=== PATIENT | male | born 1950 | race Caucasian/White ===

== ENCOUNTER 2019-04-02 15:45 | Observation (INO) ==
[2019-04-02 16:37] LABS: Basophils # (auto) 0.03 K/uL (0-0.2); Basophils % (auto) 0.4 %; Eosinophils % (auto) 1.3 %; Hematocrit (blood only) 35.3 % (42-52); Hemoglobin 12.3 g/dL (14.0-18.0); Immature Granulocytes # (auto) 0.07 K/uL (0.00-0.02); Immature Granulocytes % (auto) 0.9 %; Lymphocytes # (auto) 1.44 K/uL (1.2-3.4); Lymphocytes % (auto) 18.3 %; Mean Corpuscular Hemoglobin 32.1 pg (25-34); Mean Corpuscular Hgb Conc 34.8 g/dL (32-36); Mean Corpuscular Volume 92.2 fL (80-100); Mean Platelet Volume 9.5 fL (7.4-10.4); Monocytes # (auto) 0.66 K/uL (0.11-0.59); Monocytes % (auto) 8.4 %; Neutrophils # (auto) 5.55 K/uL (1.4-6.5); Neutrophils % (auto) 70.7 %; Platelet Count 424 K/uL (130-400); RDW Coefficient of Variation 13.4 % (11.5-14.5); Red Blood Count 3.83 M/uL (4.7-6.1); White Blood Count 7.85 K/uL (4.8-10.8)
--- NOTE | 2019-04-02 16:42 | XRay Report ---
XR chest 1V portable CLINICAL HISTORY: Chest Pain COMPARISON STUDY: Chest radiograph June 30, 2012. FINDINGS: Lung volumes are lower limits of normal. Lungs are clear. There is no pneumothorax or pleur al effusion. Cardiac size is normal. Mediastinal contours are normal. There is no evidence for pulmon tayo edema. Incidental note is made of an anterior cervical spine fusion, median sternotomy wires and mediastinal surgical clips. IMPRESSION: No acute cardiopulmonary findings. ACT 112: Negative or not required by law. Electronically signed by: Hayden Montgomery M.D. 04/02/2019 4:41 PM
[2019-04-02 16:45] LABS: Alanine Aminotransferase 16 U/L (12-78); Albumin Level 2.7 gm/dl (3.4-5.0); Aspartate Aminotransferase 14 U/L (15-37); Blood Urea Nitrogen 26 mg/dl (7-18); Calcium 8.7 mg/dl (8.5-10.1); Carbon Dioxide 22 mmol/L (21-32); Chloride 106 mmol/L (98-107); Creatinine Clr Calc Pharmacy 47.9 ml/min; Est GFR (African American) 64.7; Est GFR (Non-African American) 55.8; Glucose 147 mg/dl (70-99); Lipase 44 U/L (73-393); Magnesium 1.8 mg/dl (1.8-2.4); Potassium 4.2 mmol/L (3.5-5.1); Sodium 138 mmol/L (136-145)
[2019-04-02 16:47] LABS: Partial Thromboplastin Time 26.8 Seconds (21.0-31.0); Prothrombin Time 10.2 Seconds (9.0-12.0)
[2019-04-02 16:55] LABS: Albumin Globulin Ratio 0.6 (0.9-2); Alkaline Phosphatase 93 U/L (45-117); Bilirubin,Total 0.3 mg/dl (0.2-1); Globulin 4.2 gm/dl (2.5-4.0); NT Pro B Type Natriuretic Pept 375 pg/ml (0-900); Phosphorus 3.4 mg/dl (2.5-4.9); Total Protein 6.9 gm/dl (6.4-8.2); Troponin I < 0.015 ng/ml (0-0.045)
[2019-04-02] MEDS ORDERED: OPTIRAY 320 125ml IV PRN (17:05)
--- NOTE | 2019-04-02 17:25 | CT Scan Report ---
CT OF THE HEAD WITHOUT CONTRAST CLINICAL HISTORY: vertigo COMPARISON STUDY: No previous studies for comparison. CT DOSE: 1055.40 mGy.cm TECHNIQUE: Helical axial images of the head were obtained without IV contrast. Automated exposure con trol was utilized for the study. A dose lowering technique was utilized adhering to the principles o f ALARA. FINDINGS: No acute intracranial hemorrhage, midline shift or mass effect is present. The ventricular system is unremarkable. The basilar cisterns are patent. No extra-axial collections are present. Ther e are no findings to suggest acute dural sinus thrombosis or acute territorial infarct. No significan t calvarial abnormalities are present. Visualized portions of the sinuses and mastoid air cells are c lear. Note is made of a 9 mm hypodensity within the right centrum semiovale. IMPRESSION: 1. No acute intracranial hemorrhage or mass effect. 2. 9 mm hypodensity within the right centrum semiovale ovale.. This favors an age indeterminate, but likely old, lacunar infarct. ACT 112: Negative or not required by law. Electronically signed by: Hayden Montgomery M.D. 04/02/2019 5:24 PM
--- NOTE | 2019-04-02 17:41 | CT Scan Report ---
CT ANGIOGRAPHY OF THE NECK WITH CONTRAST CLINICAL HISTORY: vertigo COMPARISON STUDY: No previous studies for comparison. Technique: CT angiography of the carotid and vertebral arteries was obtained using PeerReach 320 IV and 3D reconstruction on an independent workstation. NASCET criteria was utilized. Automated exposure c ontrol was utilized for the study. A dose lowering technique was utilized adhering to the principles of ALARA. Findings: A 1.3 cm subpleural opacity within the right upper lobe is partially imaged on this exam. T he bilateral common carotid, cervical internal carotid and vertebral arteries are patent. There is no dissection. There is no severe stenosis. There is mild plaque within the bilateral carotid bifurcati ons. The CTA of the head will be reported separately. There is moderate plaque within the proximal le ft subclavian artery without high-grade stenosis. IMPRESSION: 1. Mild atherosclerotic plaque. No significant stenosis within the major vessels of the neck. No diss ection. 2. 1.3 cm subpleural right upper lobe opacity which favors atelectasis or scarring. Follow up chest C T in 6 months is recommended. ACT 112: Negative or not required by law. Electronically signed by: Hayden Montgomery M.D. 04/02/2019 5:39 PM
--- NOTE | 2019-04-02 17:45 | CT Scan Report ---
CTA ANGIOGRAPHY OF THE HEAD CLINICAL HISTORY: vertigo COMPARISON STUDY: No previous studies for comparison. TECHNIQUE: Helical axial images of the head were obtained following uneventful intravenous administr ation of 116 cc of Optiray 320. Automated exposure control was utilized for the study. A dose lower ing technique was utilized adhering to the principles of ALARA. FINDINGS: The bilateral M1, M2, A1 and A2 segments are patent. There is no intracranial aneurysm, thr ombus or dissection. There is no high-grade stenosis. There is persistence of the right posteri or cerebral artery. There is mild narrowing of the intracranial portion of the left vertebral artery. No acute intracranial hemorrhage, midline shift or mass effect is present. Ventricular system is nor mal. Basilar cisterns are patent. There is mild polypoid mucosal thickening of the maxillary sinuses. IMPRESSION: 1. No intracranial aneurysm, intraluminal thrombus or abrupt vessel cut off. 2. Mild atherosclerotic plaque. Mild stenosis of the intracranial portion of the left vertebral arter y. ACT 112: Negative or not required by law. Electronically signed by: Hayden Montgomery M.D. 04/02/2019 5:43 PM
--- NOTE | 2019-04-02 18:08 | History & Physical Report ---
Date of Service April 02, 2019 History of Present Illness Primary Care Provider: DEANN Ojeda Shortness of breath on exertion - pulmonolgist didn't feel. Chest pain at rest and exertion New vertigo this morning, vision today Allergies Allergy/AdvReac Type Severity Reaction Status Date / Time rosuvastatin [From Crestor] Allergy Unknown myalgia Verified 04/02/19 17:08 [id number]-Vmr-Kjj Reductase Allergy Unknown myalgia Verified 04/02/19 17:08 Inhibitor Home Medications Home Medications Medication Instructions Recorded Confirmed Type ranolazine 1,000 mg 1,000 mg PO BID #60 tab 09/30/18 04/02/19 Rx tablet,extended release,12 hr nitroglycerin 0.4 mg sublingual 0.4 mg SL .COMPLEX #30 tab 03/10/19 04/02/19 Rx tablet aspirin 81 mg PO HS 04/02/19 04/02/19 History clopidogrel 75 mg PO QAM 04/02/19 04/02/19 History ibuprofen 200 mg PO Q6H PRN 04/02/19 04/02/19 History losartan 25 mg PO QAM 04/02/19 04/02/19 History metoprolol succinate 100 mg PO QAM 04/02/19 04/02/19 History pantoprazole 40 mg PO QAM 04/02/19 04/02/19 History Past Med/Surg History Medical History Acid reflux disease (Chronic) Arthritis (Chronic) Black lung disease Cervical spondylosis (Chronic 06/30/12) Cervical stenosis of spine (Chronic) Surgery 2004 on C4-C6 [address] Dr. Rizzo. Coronary atherosclerosis of [place] coronary vessel (Chronic 06/30/12) Dyslipidemia (high LDL; low HDL) (Chronic) Dyspnea on exertion Grade II diastolic dysfunction History of [place] (myocardial infarction) 06/30/2012-completely occluded proximal RCA which was treated using a 4.0 x 15 mm bare metal stent, high-grade stenosis of the proximal PDA which was treated using a 2.25 x 12 mm bare metal stent Hypertension (Chronic) Impaired fasting glucose (Chronic) Lumbar canal stenosis (Chronic) Pleural thickening Surgical History H/O cardiac catheterization 2004. At that time he underwent deployment of a Cypher 2.5 x 23 mm stent in the second obtuse marginal artery of the left circumflex coronary artery. S/P CABG x 2 (Chronic) CABG x2 vessels with VARGAS to LAD and a saphenous vein graft to left circumflex on August 16, 2012. Family History Mother Myocardial infarction Grandmother (Maternal) Myocardial infarction Aunt Myocardial infarction Social History Preferred Language: Pashto Feels Safe at Home: Yes Smoking Status: Never smoker Seatbelt Use: always Results & Data Vital Signs (Past 12 Hours) Vital Signs Temp Pulse Resp BP Pulse Ox 04/02/19 18:00 63 14 133/74 97 04/02/19 16:30 69 20 159/91 H 97 04/02/19 15:53 70 14 170/88 H 97 04/02/19 15:52 75 18 98 04/02/19 15:45 36.7 C 75 18 170/88 H 98 PG Care Time/CCT Total # of Minutes Spent Total Time Spent with Patient: Total time spent is greater than 50% in coord ination of care (as documented) at patient's floor/unit and/or counseling patient: Coding
--- NOTE | 2019-04-02 19:33 | Emergency Department Note ---
Entered by Sandra Dang acting as a scribe for João Escoto MD History of Present Illness General Chief complaint: Dizziness Stated complaint: DIZZINESS, WEAKNESS Time Seen by Provider: 04/02/19 16:05 Source: patient History of Present Illness Onset (ago): hour(s) (just prior to arrival) Location: head Severity: similar to prior episodes Pain Consistency: + other (episode ) Maximum Pain Intensity: 7 Quality: + other (vertigo) Associated symptoms: + chest pain (intermittent), + shortness of breath (worsening ), + weakness and + other (positive distorted vision; positive seeing colorful spots; ) The patient is a 68 year old male who presents to the Emergency Room with complaints of an episode of vertigo that began just prior to arrival. The patient states that at this time his vision became distorted and he began to see colorful spots. The patient states that he feels weak during this time. He reports that this is similar to a prior episode of vertigo several months ago. The patient states that he has been having worsening shortness of breath over the past several weeks. He states that he saw a Database Tester last week and was told that his lungs are clear. The patient states that he plans to follow with a Tripper soon for further evaluation. The patient states that he has been having chest pain intermittently over the past several weeks. The patient reports a history of an HI with catheterization. Home Medications Home Medications Medication Instructions Recorded Confirmed Type ranolazine 1,000 mg 1,000 mg PO BID #60 tab 09/30/18 04/02/19 Rx tablet,extended release,12 hr nitroglycerin 0.4 mg sublingual 0.4 mg SL .COMPLEX #30 tab 03/10/19 04/02/19 Rx tablet aspirin 81 mg PO HS 04/02/19 04/02/19 History clopidogrel 75 mg PO QAM 04/02/19 04/02/19 History ibuprofen 200 mg PO Q6H PRN 04/02/19 04/02/19 History losartan 25 mg PO QAM 04/02/19 04/02/19 History metoprolol succinate 100 mg PO QAM 04/02/19 04/02/19 History pantoprazole 40 mg PO QAM 04/02/19 04/02/19 History Allergies Allergy/AdvReac Type Severity Reaction Status Date / Time rosuvastatin [From Crestor] Allergy Unknown myalgia Verified 04/02/19 17:08 [id number]-[id number] Reductase Allergy Unknown myalgia Verified 04/02/19 17:08 Inhibitor Past Med/Surg History Medical History Acid reflux disease (Chronic) Arthritis (Chronic) Black lung disease Cervical spondylosis (Chronic 06/30/12) Cervical stenosis of spine (Chronic) Surgery 2004 on C4-C6 [address]. Rizzo. Coronary atherosclerosis of [place] coronary vessel (Chronic 06/30/12) Dyslipidemia (high LDL; low HDL) (Chronic) Dyspnea on exertion Grade II diastolic dysfunction History of HI (myocardial infarction) 06/30/2012-completely occluded proximal RCA which was treated using a 4.0 x 15 mm bare metal stent, high-grade stenosis of the proximal PDA which was treated using a 2.25 x 12 mm bare metal stent Hypertension (Chronic) Impaired fasting glucose (Chronic) Lumbar canal stenosis (Chronic) Pleural thickening Surgical History H/O cardiac catheterization 2004. At that time he underwent deployment of a Cypher 2.5 x 23 mm stent in the second obtuse marginal artery of the left circumflex coronary artery. S/P CABG x 2 (Chronic) CABG x2 vessels with VARGAS to LAD and a saphenous vein graft to left circumflex on August 16, 2012. 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 and A total of 10 systems reviewed and were otherwise negative Physical Exam Vital Signs Vital Signs - 24 hr 04/02/19 15:45 04/02/19 15:52 04/02/19 15:53 Temperature 36.7 C Temperature Source Oral Pulse Rate 75 75 70 Pulse Rate from SpO2 Sensor 70 Pulse Rhythm Regular Regular Respiratory Rate 18 18 14 Respiratory Effort / Characteristics Non-Labored Respiratory Depth Normal Respiratory Pattern Regular Blood Pressure 170/88 H 170/88 H Blood Pressure Mean 115 109 Pulse Oximetry 98 98 97 Oxygen Delivery Method Room Air Room Air Room Air Sepsis Recent Fever Within 48 Hours No Sepsis New/Unexplained Change in Mental Status No Sepsis Action Taken by Nursing No Action Required 04/02/19 16:30 04/02/19 18:00 04/02/19 18:30 Temperature Temperature Source Pulse Rate 69 63 65 Pulse Rate from SpO2 Sensor 71 63 66 Pulse Rhythm Respiratory Rate 20 14 13 Respiratory Effort / Characteristics Respiratory Depth Respiratory Pattern Blood Pressure 159/91 H 133/74 159/86 H Blood Pressure Mean 110 91 105 Pulse Oximetry 97 97 98 Oxygen Delivery Method Room Air Room Air Room Air Sepsis Recent Fever Within 48 Hours Sepsis New/Unexplained Change in Mental Status Sepsis Action Taken by Nursing 04/02/19 19:00 04/02/19 19:30 04/02/19 20:01 Temperature Temperature Source Pulse Rate 64 65 72 Pulse Rate from SpO2 Sensor 64 65 71 Pulse Rhythm Respiratory Rate 17 16 18 Respiratory Effort / Characteristics Respiratory Depth Respiratory Pattern Blood Pressure 140/77 138/82 171/86 H Blood Pressure Mean 104 106 119 Pulse Oximetry 97 96 98 Oxygen Delivery Method Room Air Room Air Room Air Sepsis Recent Fever Within 48 Hours Sepsis New/Unexplained Change in Mental Status Sepsis Action Taken by Nursing 04/02/19 20:30 04/02/19 21:00 Temperature Temperature Source Pulse Rate 69 63 Pulse Rate from SpO2 Sensor 69 63 Pulse Rhythm Respiratory Rate 19 13 Respiratory Effort / Characteristics Respiratory Depth Respiratory Pattern Blood Pressure 175/97 H 123/68 Blood Pressure Mean 122 82 Pulse Oximetry 97 95 Oxygen Delivery Method Room Air Room Air Sepsis Recent Fever Within 48 Hours Sepsis New/Unexplained Change in Mental Status Sepsis Action Taken by Nursing GENERAL: Awake, alert, well-appearing, in no distress HENT: Normocephalic, atraumatic. Oropharynx with dry mucous membranes and otherwise unremarkable. EYES: Normal conjunctiva. Sclera non-icteric. EOMI. No nystamgus. PEARRL. NECK: Supple. No nuchal rigidity. FROM. No JVD. RESPIRATORY: CTAB. CARDIAC: Regular rate, normal rhythm. Extremities warm and well perfused. Pulses equal. ABDOMEN: Soft, non-distended. No tenderness to palpation. No rebound or guard ing. No masses. RECTAL: Deferred. MUSCULOSKELETAL: Chest examination reveals no tenderness. The back is symmetrical on inspection without obvious abnormality. There is no CVA tenderness to palpation. No joint edema. LOWER EXTREMITIES: Calves are equal size bilaterally and non-tender. No edema. No discoloration. NEURO: Normal sensorium. No sensory or motor deficits noted. Cerebellar function intact, including finger to nose, alternating palms, heel to skelton. 5/5 strength and SILT x4 extremities. SKIN: No rash or jaundice noted. Course Course 1638: Past medical records reviewed. The patient was evaluated in room B4B. A complete history and physical exam was performed. 180: I discussed the case with Dr. S[facility] Hospitalist who accepts the patient for further evaluation. Administered Medications Acetaminophen (Tylenol) 650 mg PO Q4H PRN PRN Reason: Pain or Fever Stop: 05/02/19 22:49 Last Admin: 04/02/19 23:08 Dose: 650 mg Documented by: [id number] Aspirin (Ecotrin Ectab) 81 mg PO HS APRIL Stop: 05/02/19 22:49 Last Admin: 04/02/19 23:19 Dose: 81 mg Documented by: [id number] Ioversol (Optiray 320 125ml) 116 ml IV ONCE PRN PRN Reason: Interaction Checking Stop: 04/06/19 17:04 Last Admin: 04/02/19 17:06 Dose: 116 ml Documented by: [id number] Ranolazine (Ranexa) 1,000 mg PO BID APRIL Stop: 05/02/19 22:49 Last Admin: 04/02/19 23:19 Dose: 1,000 mg Documented by: [id number] Medical Decision Making Differential Diagnosis Differential diagnosis includes etiologies such as benign positional vertigo, dehydration, hypovolemia, anemia, tumor, infection, hypoglycemia, electrolyte abnormalities, cardiac sources, intracerebral event, toxicologic, neurologic, as well as others were entertained. Medical Records Attestation: I reviewed the patient's medical records. Home Medications Current Medication List: was personally reviewed by me Laboratory Data Attestation: I reviewed the patient's lab results. Result diagrams: 04/02/19 16:01 04/02/19 16: Lab Results 04/02/19 04/02/19 04/02/19 Range/Units 16:01 16: 16:01 WBC 7.85 (4.8-10.8) K/uL RBC 3.83 L (4.7-6.1) M/uL Hgb 12.3 L (14.0-18.0) g/dL Hct 35.3 L (42-52) % MCV 92.2 (80-100) fL MCH 32.1 (25-34) pg MCHC 34.8 (32-36) g/dL RDW Std Deviation 45.0 (36.4-46.3) fL RDW Coeff of Cecily 13.4 (11.5-14.5) % Plt Count 424 H (130-400) K/uL MPV 9.5 (7.4-10.4) fL Immature Gran % (Auto) 0.9 % Neut % (Auto) 70.7 % Lymph % (Auto) 18.3 % [place] % (Auto) 8.4 % Eos % (Auto) 1.3 % Baso % (Auto) 0.4 % Immature Gran # (Auto) 0.07 H (0.00-0.02) K/uL Neut # (Auto) 5.55 (1.4-6.5) K/uL Lymph # (Auto) 1.44 (1.2-3.4) K/uL [place] # (Auto) 0.66 H (0.11-0.59) K/uL Eos # (Auto) 0.10 (0-0.5) K/uL Baso # (Auto) 0.03 (0-0.2) K/uL PT 10.2 (9.0-12.0) Seconds INR 1.0 (0.9-1.1) APTT 26.8 (21.0-31.0) Seconds PTT Ratio 1.0 Sodium 138 (136-145) mmol/L Potassium 4.2 (3.5-5.1) mmol/L Chloride 106 (98-107) mmol/L Carbon Dioxide 22 (21-32) mmol/L Anion Gap 10.0 (3-11) BUN 26 H (7-18) mg/dl Creatinine 1.32 (0.6-1.4) mg/dl Est Cr Clr Drug Dosing 47.9 ml/min Est GFR ( Amer) 64.7 Est GFR (Non-Af Amer) 55.8 BUN/Creatinine Ratio 20.0 (10-20) Glucose 147 H (70-99) mg/dl Calcium 8.7 (8.5-10.1) mg/dl Phosphorus 3.4 (2.5-4.9) mg/dl Magnesium 1.8 (1.8-2.4) mg/dl Total Bilirubin 0.3 (0.2-1) mg/dl AST 14 L (15-37) U/L ALT 16 (12-78) U/L Alkaline Phosphatase 93 (45-117) U/L Troponin I < 0.015 (0-0.045) ng/ml NT-Pro-B Natriuret Pep 375 (0-900) pg/ml Total Protein 6.9 (6.4-8.2) gm/dl Albumin 2.7 L (3.4-5.0) gm/dl Globulin 4.2 H (2.5-4.0) gm/dl Albumin/Globulin Ratio 0.6 L (0.9-2) Lipase 44 L (73-393) U/L TSH 2.370 (0.300-4.500) uIu/ml Urine Color Urine Appearance (Clear) Urine pH (4.5-7.5) Ur Specific O[place] (1.000-1.030) Urine Protein (Negative) Urine Glucose (UA) (Negative) Urine Ketones (Negative) Urine Blood (Negative) Urine Nitrite (Negative) Urine Bilirubin (Negative) Urine Urobilinogen (Negative) Ur Leukocyte Esterase (Negative) 04/02/19 Range/Units 20:00 WBC (4.8-10.8) K/uL RBC (4.7-6.1) M/uL Hgb (14.0-18.0) g/dL Hct (42-52) % MCV (80-100) fL MCH (25-34) pg MCHC (32-36) g/dL RDW Std Deviation (36.4-46.3) fL RDW Coeff of Cecily (11.5-14.5) % Plt Count (130-400) K/uL MPV (7.4-10.4) fL Immature Gran % (Auto) % Neut % (Auto) % Lymph % (Auto) % [place] % (Auto) % Eos % (Auto) % Baso % (Auto) % Immature Gran # (Auto) (0.00-0.02) K/uL Neut # (Auto) (1.4-6.5) K/uL Lymph # (Auto) (1.2-3.4) K/uL [place] # (Auto) (0.11-0.59) K/uL Eos # (Auto) (0-0.5) K/uL Baso # (Auto) (0-0.2) K/uL PT (9.0-12.0) Seconds INR (0.9-1.1) APTT (21.0-31.0) Seconds PTT Ratio Sodium (136-145) mmol/L Potassium (3.5-5.1) mmol/L Chloride (98-107) mmol/L Carbon Dioxide (21-32) mmol/L Anion Gap (3-11) BUN (7-18) mg/dl Creatinine (0.6-1.4) mg/dl Est Cr Clr Drug Dosing ml/min Est GFR ( Amer) Est GFR (Non-Af Amer) BUN/Creatinine Ratio (10-20) Glucose (70-99) mg/dl Calcium (8.5-10.1) mg/dl Phosphorus (2.5-4.9) mg/dl Magnesium (1.8-2.4) mg/dl Total Bilirubin (0.2-1) mg/dl AST (15-37) U/L ALT (12-78) U/L Alkaline Phosphatase (45-117) U/L Troponin I (0-0.045) ng/ml NT-Pro-B Natriuret Pep (0-900) pg/ml Total Protein (6.4-8.2) gm/dl Albumin (3.4-5.0) gm/dl Globulin (2.5-4.0) gm/dl Albumin/Globulin Ratio (0.9-2) Lipase (73-393) U/L TSH (0.300-4.500) uIu/ml Urine Color Yellow Urine Appearance Clear (Clear) Urine pH 7.0 (4.5-7.5) Ur Specific [place] > 1.045 H (1.000-1.030) Urine Protein Negative (Negative) Urine Glucose (UA) Negative (Negative) Urine Ketones Negative (Negative) Urine Blood Negative (Negative) Urine Nitrite Negative (Negative) Urine Bilirubin Negative (Negative) Urine Urobilinogen Negative (Negative) Ur Leukocyte Esterase Negative (Negative) Imaging Data Radiologist's Impression: Radiology results as stated below per my review and the radiologist's interpretation: XR chest 1V portable CLINICAL HISTORY: Chest Pain COMPARISON STUDY: Chest radiograph June 30, 2012. FINDINGS: Lung volumes are lower limits of normal. Lungs are clear. There is no pneumothorax or pleural effusion. Cardiac size is normal. Mediastinal contours are normal. There is no evidence for pulmonary edema. Incidental note is made of an anterior cervical spine fusion, median sternotomy wires and mediastinal surgical clips. IMPRESSION: No acute cardiopulmonary findings. ACT 112: Negative or not required by law. Electronically signed by: Hayden Montgomery M.D. 04/02/2019 4:[address] OF THE HEAD WITHOUT CONTRAST CLINICAL HISTORY: vertigo COMPARISON STUDY: No previous studies for comparison. CT DOSE: 1055.40 mGy.cm TECHNIQUE: Helical axial images of the head were obtained without IV contrast. Automated exposure control was utilized for the study. A dose lowering technique was utilized adhering to the principles of ALARA. FINDINGS: No acute intracranial hemorrhage, midline shift or mass effect is present. The ventricular system is unremarkable. The basilar cisterns are patent. No extra-axial collections are present. There are no findings to suggest acute dural sinus thrombosis or acute territorial infarct. No significant calvarial abnormalities are present. Visualized portions of the sinuses and mastoid air cells are clear. Note is made of a 9 mm hypodensity within the right centrum semiovale. IMPRESSION: 1. No acute intracranial hemorrhage or mass effect. 2. 9 mm hypodensity within the right centrum semiovale ovale.. This favors an age indeterminate, but likely old, lacunar infarct. ACT 112: Negative or not required by law. Electronically signed by: Hayden Montgomery M.D. 04/02/2019 5:24 PM CTA ANGIOGRAPHY OF THE HEAD CLINICAL HISTORY: vertigo COMPARISON STUDY: No previous studies for comparison. TECHNIQUE: Helical axial images of the head were obtained following uneventful intravenous administration of 116 cc of Optiray 320. Automated exposure control was utilized for the study. A dose lowering technique was utilized adhering to the principles of ALARA. FINDINGS: The bilateral M1, M2, A1 and A2 segments are patent. There is no intracranial aneurysm, thrombus or dissection. There is no high-grade stenosis. There is persistence of the right posterior cerebral artery. There is mild narrowing of the intracranial portion of the left vertebral artery. No acute intracranial hemorrhage, midline shift or mass effect is present. Ventricular system is normal. Basilar cisterns are patent. There is mild polypoid mucosal thickening of the maxillary sinuses. IMPRESSION: 1. No intracranial aneurysm, intraluminal thrombus or abrupt vessel cut off. 2. Mild atherosclerotic plaque. Mild stenosis of the intracranial portion of the left vertebral artery. ACT 112: Negative or not required by law. Electronically signed by: Hayden Montgomery M.D. 04/02/2019 5:[address] ANGIOGRAPHY OF THE NECK WITH CONTRAST CLINICAL HISTORY: vertigo COMPARISON STUDY: No previous studies for comparison. Technique: CT angiography of the carotid and vertebral arteries was obtained using DripplerraBday 320 IV and 3D reconstruction on an independent workstation. NASCET criteria was utilized. Automated exposure control was utilized for the study. A dose lowering technique was utilized adhering to the principles of ALARA. Findings: A 1.3 cm subpleural opacity within the right upper lobe is partially imaged on this exam. The bilateral common carotid, cervical internal carotid and vertebral arteries are patent. There is no dissection. There is no severe stenosis. There is mild plaque within the bilateral carotid bifurcations. The CTA of the head will be reported separately. There is moderate plaque within the proximal left subclavian artery without high-grade stenosis. IMPRESSION: 1. Mild atherosclerotic plaque. No significant stenosis within the major vessels of the neck. No dissection. 2. 1.3 cm subpleural right upper lobe opacity which favors atelectasis or s carring. Follow up chest CT in 6 months is recommended. ACT 112: Negative or not required by law. Electronically signed by: Hayden Montgomery M.D. 04/02/2019 5:39 PM ECG Data Attestation: I personally reviewed and interpreted this ECG as follows: Indication: + weakness Rate (beats per minute): 74 Rhythm: + normal sinus ECG Intervals/blocks: + Normal QT (90) and + Normal QT-c (441) ECG Strang: + Normal ECG ST segments: + Nonspecific ST abnormalities; no ST depression and no ST elevation Comparison ECG Date: from (07/02/12) Change: the following changes noted (T wave inversions inferior and lateral resolved since ) Blood Pressure Blood Pressure Findings: Elevated blood pressure Blood Pressure Disposition: further management by hospitalist MDM Narrative The patient is a pleasant 68-year-old gentleman with a past medical history of diastolic heart failure, CAD status post CABG, hypertension, hyperlipidemia who presents emergency department for evaluation of acute onset vertigo that began today with room spinning and vision changes per HPI. Of note, the patient reports a continuation of 2 months of increased dyspnea on exertion with intermittent chest pain that is not associated with exertion or rest. In particular the patient reports he will exert himself and not always feel the pain. Similarly there is no pattern to his resting pain either. The patient and family expressed concern regarding the symptoms given they have been ongoing though they admit they are not particularly worsening in terms of severity or frequency. On arrival the patient is in no acute distress, afebrile stable vital signs. He has no focal neuro deficits. EKG without overt acute ischemia compared to his prior EKG in 2012 shows resolution of prior T wave inversions. Chest x-ray negative for acute process. WBC within normal limits. H/H 12 .3/35.3 similar to prior range of values. Platelets 424, nonspecific. Chemistry without acidosis. Creatinine 1.3 slightly increased from prior value. Electrolytes LFTs unremarkable. Troponin negative/undetectable. BNP within normal limits. CT head demonstrates likely old lacunar infarct and otherwise no acute stroke. CT of the head and neck demonstrates no severe narrowing or occlusion of large vessels. There is mild stenosis of the left vertebral artery. Given the patient's constellation of symptoms including vertigo and vision changes where he thought "he was having a stroke" as well as persistence of his chest pain and dyspnea on exertion reasonable to proceed with admission. Case was discussed with Dr. Saba, [facility] hospitalist, who evaluate the patient for admission. Impression & Plan Intermittent chest pain, Vertigo, Dyspnea on exertion, History of coronary artery disease Discharge Plan Visit Data *Final* Discharge Date/Time: 04/02/19 22:30 Chief Complaint: Dizziness Stated Complaint: DIZZINESS, WEAKNESS ED Provider: João Escoto Discharge Problem: Intermittent chest pain, Vertigo, Dyspnea on exertion, History of coronary artery disease Patient Disposition: Admitted As Inpatient Discharge Instructions Interventions: ED Discharge Assessment Last Done: 04/02/19 22:30 The scribe's documentation has been prepared under my direction and personally reviewed by me in its entirety. I confirm that the note above accurately reflects all work, treatment, procedures, and medical decision making performed by me.
[2019-04-02 20:16] LABS: Appearance Urine Clear (Clear); Bilirubin Urine Negative (Negative); Blood Urine Negative (Negative); Color Urine Yellow; Glucose Urine UA Negative (Negative); Ketones Urine Negative (Negative); Leukocyte Esterase Urine Negative (Negative); Nitrite Urine Negative (Negative); Protein Urine Negative (Negative); Specific Gravity Urine > 1.045 (1.000-1.030); Urobilinogen Urine Negative (Negative)
--- NOTE | 2019-04-02 20:29 | History & Physical Report ---
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 Strokelike symptoms Visual distortion, vertigo, left arm weakness. 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 Continue. CT head shows 9 mm lacunar change question old versus acute MRI brain ordered CTA head no acute findings, mild left vertebral atherosclerosis No history of A. fib, EKG on admit normal sinus rhythm Admit to telemetry, non-TPA stroke order set. Neurology consulted,? Benefit of anticoagulation based on MRI findings Lipids, A1c ordered Unstable angina History of CAD with CABG in 2012, per patient to known 50% blockages in 2013 that were not addressed by CABG or stenting Increasing angina which occurs at rest over previous few months. Increasing shortness of breath with exertion Attempted treadmill exercise stress test at [place] recently, limited in time with maximal heart rate of 99 by shortness of breath/exertion.? Cath versus chemical stress test Patient known to Dr. Mendiola was to be seen for above symptoms tomorrow Cardiology consulted Troponin on admission negative, trend x2. No chest pain on admission Continue metoprolol succinate 100 mg p.o. every morning Nitro sublingual as needed Patient statin intolerant. He would benefit from further elucidation on whether he can switch statin class IV both a cardiac and stroke benefit. Hypertension Continue losartan 25 mg p.o. every morning Continue beta-sunny as above BMP, CBC daily GERD Continue Protonix 40 mg p.o. 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 Social: Lives independently with his , able to complete all ADLs/IADLs prior to admission CODE STATUS: Full code (2) Diastolic CHF: (3) Dyspnea on exertion: (4) History of AL (myocardial infarction): (5) H/O cardiac catheterization: (6) Hypertension: (7) S/P CABG x 2: History of Present Illness Primary Care Provider: DEANN Ojeda Santo Smyth is a 68-year-old male with a past medical history of diastolic CHF, AL status post PCI and CABG and 2013, hypertension, dyslipidemia, and 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 Santo reports that his symptoms began around 2:00 this afternoon at his daughter's birthday republican when he suddenly developed a feeling of being off balance. He describes a sensation his vertigo, although notes the room starts spinning. He has had similar symptoms once prior in his life. He also developed visual changes and noticed blurry bright colors appearing in the snow and a feeling that he was having visual distortion "like trying to look through a water bottle ". His noticed that he was having mild slurred speech. He reports his breathing was normal at the time, he did not have headache, and he did not have chest pain. He did appreciate some left arm heaviness. His symptoms lasted until he was in the ambulance, and improved during transport to the hospital. At time of visit his visual disturbances have resolved, and he feels the strength and coordination is back to normal. He has not had a prior stroke. He was scheduled to see Dr. Mendiola in cardiology tomorrow morning for cardiac follow-up. He has had increasing chest pain intermittently for the past couple of months, and has been increasingly limited in exercise by dyspnea. No episodes of diaphoresis with exercise. He has been seen by pulmonology repeatedly for follow-up related to black lung from occupational coal exposure, he has not been recommended to be on any inhalers and thinks his last PFTs were normal. Outside stress test at [place] was limited after 10 minutes with a maximal heart rate of 99 due to shortness of breath and fatigue. He has not had a nuclear stress test, it was something he was going to discuss with cardiology follow-up tomorrow. His chest pain occurs intermittently, and improves with rest. His chest pain has occurred at rest. Tends to last for between a few minutes to half hour. Medical history: Reviewed Surgical history: Reviewed Medications: Reviewed, up-to-date in EMR Social history: No current or former tobacco use. 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 Rare alcohol use. No recreational drug use. Lives at home with his , independent and able to complete all ADLs/IADLs. CODE STATUS: Full code, discussed with patient Allergies Allergy/AdvReac Type Severity Reaction Status Date / Time rosuvastatin [From Crestor] Allergy Unknown myalgia Verified 04/02/19 17:08 Xdslezz-Job-Vpt Reductase Allergy Unknown myalgia Verified 04/02/19 17:08 Inhibitor Home Medications Home Medications Medication Instructions Recorded Confirmed Type ranolazine 1,000 mg 1,000 mg PO BID #60 tab 09/30/18 04/02/19 Rx tablet,extended release,12 hr nitroglycerin 0.4 mg sublingual 0.4 mg SL .COMPLEX #30 tab 03/10/19 04/02/19 Rx tablet aspirin 81 mg PO HS 04/02/19 04/02/19 History clopidogrel 75 mg PO QAM 04/02/19 04/02/19 History ibuprofen 200 mg PO Q6H PRN 04/02/19 04/02/19 History losartan 25 mg PO QAM 04/02/19 04/02/19 History metoprolol succinate 100 mg PO QAM 04/02/19 04/02/19 History pantoprazole 40 mg PO QAM 04/02/19 04/02/19 History Past Med/Surg History Medical History Acid reflux disease (Chronic) Arthritis (Chronic) Black lung disease Cervical spondylosis (Chronic 06/30/12) Cervical stenosis of spine (Chronic) Surgery 2004 on C4-C6 [address]. Rizzo. Coronary atherosclerosis of coquille coronary vessel (Chronic 06/30/12) Dyslipidemia (high LDL; low HDL) (Chronic) Dyspnea on exertion Grade II diastolic dysfunction History of AL (myocardial infarction) 06/30/2012-completely occluded proximal RCA which was treated using a 4.0 x 15 mm bare metal stent, high-grade stenosis of the proximal PDA which was treated using a 2.25 x 12 mm bare metal stent Hypertension (Chronic) Impaired fasting glucose (Chronic) Lumbar canal stenosis (Chronic) Pleural thickening Surgical History H/O cardiac catheterization 2004. At that time he underwent deployment of a Cypher 2.5 x 23 mm stent in the second obtuse marginal artery of the left circumflex coronary artery. S/P CABG x 2 (Chronic) CABG x2 vessels with VARGAS to LAD and a saphenous vein graft to left c ircumflex on August 16, 2012. 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 Denies nausea/vomiting. Point ROS otherwise negative except as noted in HPI. Physical Exam Physical Exam: General: A&Ox3. NAD. Cooperative. HEENT: Atraumatic, normocephalic. Pulm: CTAB A&P. -wheezes, -rales, -rhonchi. Symmetrical chest rise. No increase work of breathing. No respiratory distress. Cardiac: RRR, -mrg. Radial pulses intact and symmetrical. Abdominal: Nontender, nondistended, soft. BS present. CN II: Visual collazo are full to confrontation. Pupils are equal and react to light and accomidation. Visual acuity grossly intact. CN III, IV, : At primary gaze, there is no eye deviation. EoM intact without nystagmus. No visual field cuts. CN V: Facial sensation is intact to soft touch in all 3 divisions bilaterally. CN VII: No facial asymmetry, full strength to eyebrow raise, smile, eye close, and cheek puff. CN VII: Hearing is grossly intact. CN IX, X: Palate elevates symmetrically. Phonation is normal without dysarthria. CN XI: Head turning and shoulder shrug are intact CN XII: Tongue protrudes midline. Reflexes: Patellar, Achilles, Brachial DTR 2+ Bilaterally Sensory: Light touch, pinprick intact in upper and low extremities without deficit or asymmetry. Strength: RUE: Shoulder flexion/extension/internal rotation/external rotation, elbow flexion/extension, finger flexion/extension, barrel handler strength, interosseous 5/5 LUE: Shoulder flexion/extension/internal rotation/external rotation, elbow flexion/extension, finger flexion/extension, barrel handler strength, interosseous 5/5 RLE: Hip flexion, knee flexion/extension, ankle plantar flexion/dorsiflexion 5/5 LLE: Hip flexion, knee flexion/extension, ankle plantar flexion/dorsiflexion 5/5 Coordination: Rapid alternating movements and fine finger movements are intact. There is no dysmetria on [id number] and [id number]. Results & Data Vital Signs (Past 12 Hours) Vital Signs Temp Pulse Resp BP Pulse Ox 04/02/19 20:01 72 18 171/86 H 98 04/02/19 19:30 65 16 138/82 96 04/02/19 19:00 64 17 140/77 97 04/02/19 18:30 65 13 159/86 H 98 04/02/19 18:00 63 14 133/74 97 04/02/19 16:30 69 20 159/91 H 97 04/02/19 15:53 70 14 170/88 H 97 04/02/19 15:52 75 18 98 04/02/19 15:45 36.7 C 75 18 170/88 H 98 Supervising Physician Co-Signing Physician Notes Attending addendum: I have physically seen this patient, have supervised the medical residents activities, and agree with the H&P unless as otherwise noted. Assessment and Plan: Strokelike symptoms spontaneously resolved- The patient will be admitted to telemetry for serial cardiac enzymes, serial EKG's, cardiac rhythm monitoring and a 2-D echocardiogram with Dopplers. CT of head without contrast shows 9 mm lacunar infarct of indeterminate age, most likely old. CTA order MRI brain without contrast. Head and neck with mild left vertebral atherosclerosis. Continue aspirin and clopidogrel stroke without TPA order set. Consult neurology. Check hemoglobin A1c, and fasting lipid panel. Unstable angina/CAD/status post CABG 2012- Telemetry admission as noted. Consult cardiology. Continue metoprolol succinate 100 mg p.o. every morning with hold parameters, and losartan 25 mg p.o. daily. Remainder of orders and notations as noted. Resident Activity Tracking Resident Involvement: Resident Care Provided Care Provided: Adult Hospital Medicine
[2019-04-02] MEDS ORDERED: PHARMACIST DISCHARGE MED REC CONSULT PRN (22:50)
[2019-04-02] MEDS ORDERED: ASPIRIN 81 MG ECTAB PO SCH (22:50)
[2019-04-02] MEDS ORDERED: NITROGLYCERIN SL 0.4 MG/TAB TAB SL PRN (22:50)
[2019-04-02] MEDS ORDERED: IBUPROFEN 200 MG TAB PO PRN (22:50)
[2019-04-02] MEDS ORDERED: ACETAMINOPHEN 325 MG TAB PO PRN (22:50)
[2019-04-02] MEDS: RANOLAZINE 500 MG ER TAB PO SCH (23:19)
--- NOTE | 2019-04-03 03:16 | Billing Data ---
Date of Service April 03, 2019 Coding Level of Care Code 12399 Initial Inpt Care Lvl 3
--- NOTE | 2019-04-03 06:34 | Magnetic Resonance Report ---
MRI OF THE BRAIN WITHOUT CONTRAST CLINICAL HISTORY: Vertigo, acute stroke symptoms. Abnormal CT scan. COMPARISON STUDY: Noncontrast CT scan dated 01/31/2020 FINDINGS: Sagittal T1, axial diffusion, proton density and T2 weighted axial, coronal FLAIR, and axial T1-weigh reta images were acquired. No intra or extra-axial mass lesions are visualized Axial diffusion-weighted images reveal no evidence of acute or subacute infarction. There is no evidence of ventricular dilatation. Proton density T2-weighted and FLAIR images reveal scattered foci of increased T2 signal within the w radha matter, likely on a small vessel basis. There is an old lacunar infarct in the region of the rig ht centrum semiovale. There are no abnormal flow voids. Foci of increased T2 signal within the right mastoid are likely inflammatory. IMPRESSION: 1. No acute intracranial findings 2. No evidence of acute or subacute infarction 3. No evidence of intracranial mass in this noncontrast study ACT 112: Negative or not required by law. Electronically signed by: Augustine Ryder M.D. 04/03/2019 6:33 AM
--- NOTE | 2019-04-03 08:09 | Neurology Consultation ---
Date of Consultation April 03, 2019 Assessment & Plan (1) Vertigo: (2) Blurry vision: (3) Hypertension: (4) Dyspnea on exertion: (5) Lumbar canal stenosis: (6) Cervical spondylosis: (7) Dyslipidemia (high LDL; low HDL): Patient had an episode of acute vertigo and blurry vision. The visual distortions and color changes lasted 20 minutes and then resolved. The vertiginous symptoms lasted 2-3 hours and then resolved. Currently, he is asymptomatic referable to his central nervous system and the events of yesterday and has no focal neurologic signs, meningeal signs, or encephalopathy. Etiology of this was likely related to his high blood pressure, likely with vasospasm. He did not have a migraine or other headache. He has chronic inner ear issues from noise exposure with tinnitus and hearing loss. He likely has inner ear symptoms triggered by the the hypertensive/vasospasm. There was no evidence for an acute stroke on MRI. The do not believe this was technically a TIA either. Patient has mild old small vessel ischemic changes only. He has been on aspirin and Plavix for years. CT angiography of the head neck shows no significant stenoses or anomalies. Patient has a history of cervical spinal stenosis post surgery in 2004 and lumbar spinal stenosis. He has currently no radicular symptoms in the legs but some intermittent radicular symptoms in the left upper extremity on a chronic basis. He has history of dyslipidemia but fasting lipid profile is pending. Patient has a history of dyspnea on exertion. Recent pulmonary evaluation felt that that was not a primary pulmonary problem but likely cardiac. He does have chronic cardiac issues and is followed by Dr. Rubio as an outpatient. Recommendations: 1. I see no need for additional neurologic testing at this time. 2. Control blood pressure as you are doing, aiming for a mean arterial pressure between 95 and 100. 3. Check fasting lipid profile. 4. Consider cardiology follow-up with Dr. Rubio as an outpatient. 5. There was a concern that the patient had obstructive sleep apnea. This niurka uld be evaluated by Sleep Medicine and treated accordingly as an outpatient. 6. I could follow as an outpatient regarding his spinal stenosis and radicular symptoms. EMG and nerve conduction studies of the limbs could be done as an outpatient. 7. Otherwise I would continue with his current antiplatelet regimen. From a neurologic standpoint 81 mg aspirin tablet alone is reasonable. He is on both clopidogrel and aspirin for cardiac reasons however. Overall, I spent a total of 75 minutes with this case including review of records, review of CT and MRI films, direct evaluation the patient at bedside, and discussion of the case with the patient at bedside, RN at bedside, and Dr. Barger, including differential diagnosis and treatment options. History of Present Illness Reason for Consultation: Patient is a 68-year-old, who I was asked see at the request of Dr. Velazquez, for neurologic consultation regarding acute vertigo and other symptoms. Requesting Physician: Dr. Velazquez Attending Physician: Louisa Barger MD History of Present Illness This patient has a history of cervical spinal stenosis post surgery [place] [address] Rizzo at C4 through C6. At that time he had left upper extremity symptoms which were somewhat improved but he still has numbness in the 1st 3 digits. Patient has had a significant heart attack with coronary artery disease requiring stent in 2012. He has been on 81 mg aspirin 75 mg clopidogrel since. He has no history of stroke as far as he is aware. He has a history of black long disease and shortness of breath with exertion. He saw his lockstitch shoulder joiner March 29 who felt that, although he had multiple pulmonary nodules, there was no obvious pulmonary etiology for his exertional dyspnea. It was felt that it may be cardiac. He is followed Dr. Rubio over the years. Patient has had several episodes of vertigo over the last 6 months. He had an episode while visiting his son lasting about an hour early February of this year. Yesterday, he was with family and finished eating sometime around 1 o'clock in the afternoon. He had the sudden onset of vertigo with a staggering as he tried to walk and went to sit down on the sofa. He did not feel particularly pulled to 1 side or the other. He had no new ear pain. He does have chronic (daily, persistent) tinnitus bilaterally for many years as well as some left-sided hearing loss which he attributes to noise exposure from his various occupations over the years. With this episode, there was no new hearing loss or tinnitus. When he sat still with his head nice still he did not have dizziness. When he turned his head, looking left or right, or moved, he had the dizziness. His vision was mildly blurry and he had some distorted vision with abnormal colors lasting about 20 minutes then resolving. He had no headache before, during, or after. He had no new weakness or numbness in the arms or legs and no incontinence of urine. He had no confusion although he says that his and daughter felt his speech was a little bit slurred in the 1st 20 minutes. By the time he got to the ambulance they noted his blood pressure was very high but his symptoms were resolving. He arrived at the emergency room at 1545 with a temperature of 36.7, pulse 75 and regular, respiratory rate 18 comfortable, blood pressure 170/88, and O2 saturation 98%. His symptoms were resolving in the ER. He had no focal signs, meningeal signs, or encephalopathy. CBC showed some mild anemia. Chem profile was unremarkable. TSH was 2.3 and urinalysis was unremarkable. Chest x-ray was unremarkable. CT scan of the head showed a right centrum semiovale infarct of undetermined age. I reviewed these films. CT angiography of the head and neck were unremarkable except for some very mild left vertebral distal narrowing. There was no evidence for stenosis, aneurysm, or other vessel anomalies. Incidentally, There was a 1.3 cm right upper lobe opacity noted in the chest MRI of the brain showed no acute stroke. There was some old mild scattered small vessel ischemic changes including the right centrum semiovale area. There was some mild old atrophy. I reviewed these films. I discussed all CT and MRI study results with the patient Today the patient is asymptomatic. Blood pressure is improved 135/78. He had no dysrhythmia overnight. Allergies Allergy/AdvReac Type Severity Reaction Status Date / Time rosuvastatin [From Crestor] Allergy Unknown myalgia Verified 04/02/19 17:08 Unlwvsy-Egh-Tki Reductase Allergy Unknown myalgia Verified 04/02/19 17:08 Inhibitor Home Medications Home Medications Medication Instructions Recorded Confirmed Type ranolazine 1,000 mg 1,000 mg PO BID #60 tab 09/30/18 04/02/19 Rx tablet,extended release,12 hr nitroglycerin 0.4 mg sublingual 0.4 mg SL .COMPLEX #30 tab 03/10/19 04/02/19 Rx tablet aspirin 81 mg PO HS 04/02/19 04/02/19 History clopidogrel 75 mg PO QAM 04/02/19 04/02/19 History ibuprofen 200 mg PO Q6H PRN 04/02/19 04/02/19 History losartan 25 mg PO QAM 04/02/19 04/02/19 History metoprolol succinate 100 mg PO QAM 04/02/19 04/02/19 History pantoprazole 40 mg PO QAM 04/02/19 04/02/19 History Patient History Medical History (Updated 04/03/19 @ 08:28 by Babar Chávez III, MD) Acid reflux disease (Chronic) Arthritis (Chronic) Black lung disease Cervical spondylosis (Chronic 06/30/12) Cervical stenosis of spine (Chronic) Surgery 2004 on C4-[address]. Rizzo. Coronary atherosclerosis of [place] coronary vessel (Chronic 06/30/12) Dyslipidemia (high LDL; low HDL) (Chronic) Dyspnea on exertion Grade II diastolic dysfunction History of [facility] (myocardial infarction) 06/30/2012-completely occluded proximal RCA which was treated using a 4.0 x 15 mm bare metal stent, high-grade stenosis of the proximal PDA which was treated using a 2.25 x 12 mm bare metal stent Hypertension (Chronic) Impaired fasting glucose (Chronic) Lumbar canal stenosis (Chronic) Pleural thickening Surgical History H/O cardiac catheterization 2004. At that time he underwent deployment of a Cypher 2.5 x 23 mm stent in the second obtuse marginal artery of the left circumflex coronary artery. S/P CABG x 2 (Chronic) CABG x2 vessels with VARGAS to LAD and a saphenous vein graft to left circumflex on August 16, 2012. 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 other: Multiple toxin and noise exposures Feels Safe at Home: Yes Safety Concerns: Feels Safe At This Time Smoking Status: Never smoker Hx Alcohol Use: Yes Alcohol type: beer Alcohol Intake Frequency: Rarely Alcohol Intake Frequency Comment: One or 2 beers per month Hx Substance Use: No Seatbelt Use: always Review of Systems Constitutional: no fever, no fatigue and no weakness Eyes: no diplopia, no eye pain and no worsening vision Ear, Nose, Mouth, Throat: + tinnitus and + hearing loss; no ear pain, no dizziness, no snoring, no hoarseness and no dysphagia Respiratory: + dyspnea on exertion; no cough Cardiovascular: + dyspnea on exertion; no chest pain, no palpitations and no lightheadedness Gastrointestinal: no abdominal pain, no nausea and no vomiting Genitourinary: no dysuria and no urinary incontinence Musculoskeletal: + back pain, + neck pain and + radicular pain; no joint pain and no myalgia Integumentary: no rash and no lesions Neurologic: no gait abnormality, no localized weakness, no generalized weakness, no tingling, no numbness, no tremor(s), no abnormal movements, no headache(s), no abnormal speech, no confusion and no memory loss Psychiatric: no depression, no irritability, no anxiety, no difficulty concentrating, no confusion and no hallucinations Endocrine: no fatigue and no flushing Hematologic / Lymphatic: no easy bleeding and no easy bruising Allergy / Immunological: no urticaria and no problem reported Physical Exam Physical Exam: The patient is right-handed. The patient is awake, alert, and attentive. Speech is normal without any aphasia or dysarthria. he can name objects, repeat phrases, and has normal spontaneous speech. Mentation and thought processes are intact, with orientation to person, place and time, and normal fund of knowledge. Attention and concentration are normal. Mood and affect are normal and appropriate. General appearance and grooming are normal. Short and long-term memory are intact. The discs are sharp with positive venous pulsations bilaterally. There are no exudates, hemorrhages, or blood vessel changes seen. Pupils are 4 mm bilaterally and reactive to light. Extraocular eye muscles are intact without nystagmus. Visual acuity and visual collazo seem normal grossly to confrontation. There are no deficits to sensation in the face in all 3 distributions of the fifth cranial nerve bilaterally. Corneal reflexes are positive bilaterally. Facial strength and symmetry was normal bilaterally. Hearing seems normal to conversation bilaterally. Palate moves well without asymmetry. There is normal sternocleidomastoid and trapezius (shoulder shrug) strength bilaterally. Tongue is midline with good strength bilaterally. Neck has a full range of motion without discomfort. There are no cervical bruits bilaterally. There are no cranial or ocular bruits. Heart is without murmur. There is a regular rhythm and rate. Cervical, thoracic, and lumbar spine are nontender to palpation. Gait is narrow based, with good arm swing, turns, and stance. Balance is normal eyes open or closed. With outstretched arms there is no drift. There are no resting, postural, or action tremors. There is no ataxia with finger to nose testing. There is good facility in the hands. No other abnormal involuntary movements are noted. Motor strength is 5/5 diffusely in the arms bilaterally including deltoids, biceps, triceps, brachioradialis, wrist flexors and extensors, thermal cutting machine operator, and intrinsic hand muscles. Motor strength is 5/5 diffusely in the legs bilaterally including hip flexors, quadriceps, hamstrings, gastrocnemius, tibialis anterior, tibialis posterior, and Peroneii muscles. Toe extensors are normal and there is good bulk in the extensor digitorum brevis muscles bilaterally. The limbs have good tone without rigidity or spasticity. There is no atrophy noted in the muscles. Muscle bulk is normal, there is no tenderness to palpation, no myotonia to percussion, and no fasciculations seen. Sensory examination is intact to touch and pin throughout all 4 limbs diffusely. Reflexes are 1/4 in the biceps, triceps, brachioradialis, quadriceps, and Achilles tendons bilaterally. There is no clonus bilaterally. Toes are downgoing with plantar stimulation bilaterally. Peripheral pulses are present and of normal quality distally in all 4 limbs. There is no peripheral edema noted in the limbs. Results & Data Vital Signs (Past 12 Hours) Vital Signs Temp Pulse Pulse Resp BP BP Pulse Ox 04/03/19 07:59 67 04/03/19 07:02 36.7 C 83 16 135/78 93 04/03/19 03:01 36.5 C 70 16 126/77 96 04/02/19 23:10 60 04/02/19 22:50 36.5 C 60 18 161/88 H 96 04/02/19 22:35 36.5 C 60 16 161/88 H 96 04/02/19 22:30 63 15 139/72 97 04/02/19 22:00 63 15 139/72 97 04/02/19 21:30 61 14 134/80 95 04/02/19 21:00 63 13 123/68 95 04/02/19 20:30 69 19 175/97 H 97 Diagnostic Findings [place], [place] [phone] Magnetic Resonance Report Patient: VIOLETTE MOSQUEDAAdmit Date: 04/02/19 MR#: [id number]: [id number] [facility] Acct ID:[id number]: [facility] Zip[facility] [place] [address] Age: 68Location: 2S Sex: M Room/Bed: [facility] Att Phy: Chris Martinez M.D.Diagnosis: STROKE LIKE SYMPTOMS, UNSTABLE ANGINA Ivanna Phy: Joby Ingram CRNPService Date: 04/02/19 Fam Phy:Interpreting Phy: Augustine Ryder MD Admit Phy: Jelani Velazquez MD Ordering Phy: Jelani Velazquez MD cc: ~ MRI OF THE BRAIN WITHOUT CONTRAST CLINICAL HISTORY: Vertigo, acute stroke symptoms. Abnormal CT scan. COMPARISON STUDY: Noncontrast CT scan dated 01/31/2020 FINDINGS: Sagittal T1, axial diffusion, proton density and T2 weighted axial, coronal FLAIR, and axial T1-weighted images were acquired. No intra or extra-axial mass lesions are visualized Axial diffusion-weighted images reveal no evidence of acute or subacute infarction. There is no evidence of ventricular dilatation. Proton density T2-weighted and FLAIR images reveal scattered foci of increased T2 signal within the white matter, likely on a small vessel basis. There is an old lacunar infarct in the region of the right centrum semiovale. There are no abnormal flow voids. Foci of increased T2 signal within the right mastoid are likely inflammatory. IMPRESSION: 1. No acute intracranial findings 2. No evidence of acute or subacute infarction 3. No evidence of intracranial mass in this noncontrast study ACT 112: Negative or not required by law. Electronically signed by: Augustine Ryder M.D. 04/03/2019 6:33 AM PG Care Time/CCT Total # of Minutes Spent Total Time Spent with Patient: Total time spent is greater than 50% in c oordination of care (as documented) at patient's floor/unit and/or counseling patient: Coding Level of Care Code 60931 Initial Inpt Care Lvl 3 Diagnoses Vertigo R42 Blurry vision H53.8 Hypertension I10 Dyspnea on exertion R06.09 Lumbar canal stenosis M48.061 Cervical spondylosis M47.812 Dyslipidemia (high LDL; low HDL) E78.5 Time Spent (min) 75
[2019-04-03] MEDS: RANOLAZINE 500 MG ER TAB PO SCH (08:13)
[2019-04-03 08:15] LABS: Basophils # (auto) 0.02 K/uL (0-0.2); Basophils % (auto) 0.3 %; Eosinophils # (auto) 0.15 K/uL (0-0.5); Eosinophils % (auto) 1.9 %; Hemoglobin 13.3 g/dL (14.0-18.0); Immature Granulocytes # (auto) 0.05 K/uL (0.00-0.02); Immature Granulocytes % (auto) 0.6 %; Lymphocytes # (auto) 1.61 K/uL (1.2-3.4); Lymphocytes % (auto) 20.7 %; Mean Corpuscular Hemoglobin 32.8 pg (25-34); Mean Corpuscular Hgb Conc 35.9 g/dL (32-36); Mean Corpuscular Volume 91.4 fL (80-100); Mean Platelet Volume 9.2 fL (7.4-10.4); Monocytes % (auto) 6.4 %; Neutrophils # (auto) 5.44 K/uL (1.4-6.5); Neutrophils % (auto) 70.1 %; Platelet Count 432 K/uL (130-400); RDW Coefficient of Variation 13.5 % (11.5-14.5); RDW Standard Deviation 45.1 fL (36.4-46.3); Red Blood Count 4.05 M/uL (4.7-6.1); White Blood Count 7.77 K/uL (4.8-10.8)
[2019-04-03 08:40] LABS: BUN Creatinine Ratio 19.3 (10-20); Calcium 9.1 mg/dl (8.5-10.1); Est GFR (African American) 88.4; Est GFR (Non-African American) 76.2; Potassium 4.1 mmol/L (3.5-5.1)
[2019-04-03] MEDS ORDERED: METOPROLOL SUCC 50MG EXT REL TAB PO SCH (09:00)
[2019-04-03] MEDS ORDERED: CLOPIDOGREL BISULFATE 75 MG TAB PO SCH (09:00)
[2019-04-03] MEDS ORDERED: PANTOprazole 40 MG TAB PO SCH (09:00)
[2019-04-03] MEDS ORDERED: LOSARTAN POTASSIUM 25 MG TAB PO SCH (09:00)
--- NOTE | 2019-04-03 09:17 | Electrocardiogram Report ---
Test Reason : Blood Pressure : / mmHG Vent. Rate : 074 BPM Atrial Rate : 074 BPM P-R Int : 174 ms QRS Dur : 090 ms QT Int : 398 ms P-R-T Axes : 060 075 027 degrees QTc Int : 441 ms Normal sinus rhythm Nonspecific ST abnormality Abnormal ECG When compared with ECG of 02-JUL-2012 06:13, Criteria for Inferior infarct are no longer Present T wave inversion no longer evident in Inferior leads T wave inversion no longer evident in Anterolateral leads Confirmed by Tristen Wagner ([id number]) on 04/03/2019 9:16:50 AM Referred By: ER Confirmed By:Tristen Wagner
[2019-04-03 10:03] LABS: Estimated Average Glucose 123 mg/dl; Hemoglobin A1C 5.9 % (4.5-5.6)
--- NOTE | 2019-04-03 10:39 | Discharge Summary ---
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 Santo reports that his symptoms began around 2:00 this afternoon at his daughter's birthday constitution party when he suddenly developed a feeling of being off balance. He describes a sensation his vertigo, although notes the room starts spinning. He has had similar symptoms once prior in his life. He also developed visual changes and noticed blurry bright colors appearing in the snow and a feeling that he was having visual distortion "like trying to look through a water bottle ". His noticed that he was having mild slurred speech. He reports his breathing was normal at the time, he did not have headache, and he did not have chest pain. He did appreciate some left arm heaviness. His symptoms lasted until he was in the ambulance, and improved during transport to the hospital. At time of visit his visual disturbances have resolved, and he feels the strength and coordination is back to normal. He has not had a prior stroke. He was scheduled to see Dr. Rubio in cardiology tomorrow morning for cardiac follow-up. He has had increasing chest pain intermittently for the past couple of months, and has been increasingly limited in exercise by dyspnea. No episodes of diaphoresis with exercise. He has been seen by pulmonology repeatedly for follow-up related to black lung from occupational coal exposure, he has not been recommended to be on any inhalers and thinks his last PFTs were normal. Outside stress test at [place] was limited after 10 minutes with a maximal heart rate of 99 due to shortness of breath and fatigue. He has not had a nuclear stress test, it was something he was going to discuss with cardiology follow-up tomorrow. His chest pain occurs intermittently, and improves with rest. His chest pain has occurred at rest. Tends to last for between a few minutes to half hour. Medical history: Reviewed Surgical history: Reviewed Medications: Reviewed, up-to-date in EMR Social history: No current or former tobacco use. 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 Rare alcohol use. No recreational drug use. Lives at home with his , independent and able to complete all ADLs/IADLs. CODE STATUS: Full code, discussed with patient Principal Diagnosis Stroke-like symptoms Discharge Exam Constitutional WD/WN, vitals as above Eyes PERRL, conjunctivae normal, anicteric sclerae Respiratory no respiratory distress and no retractions Auscultation: lungs clear to auscultation bilaterally; no crackles, no rales, no rhonchi and no wheezes Cardiovascular Rate/Rhythm: regular rate and regular rhythm Heart Sounds: normal S1 and normal S2; no gallop, no murmur and no cardiac rub Vessels: no JVD Extremities: no calf tenderness and no pedal edema Gastrointestinal (Abdomen) normal bowel sounds, soft, nontender, no hepatosplenomegaly Musculoskeletal no cyanosis or clubbing, extremities motor strength 5/5 Neurologic normal touch/pain/proprioception, CN's II-XI intact bilaterally, plantar reflexe s intact bilaterally, moves all extremities and awake Discharge Data Allergies Allergy/AdvReac Type Severity Reaction Status Date / Time rosuvastatin [From Crestor] Allergy Unknown myalgia Verified 04/02/19 17:08 Uzlmwbw-Pmm-Ell Reductase Allergy Unknown myalgia Verified 04/02/19 17:08 Inhibitor Consultations 04/02/19 17:50 ED Decision to Admit Stat 04/02/19 22:50 Consult Case Management - Discharge Planning Routine Consult Neurology Routine 04/02/19 23:03 Consult Cardiology Routine Ordered Studies 04/02/19 16:40 CT angio head w con Stat CT angio neck with con Stat CT head/brain wo con Stat 04/02/19 22:50 MR brain wo con Routine Hospital Course (1) Stroke-like symptoms: Santo Smyth is a 68-year-old male with a past medical history of diastolic CHF, [place] status post PCI and CABG and 2013, hypertension, dyslipidemia, and 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 Stroke-like symptoms: -Visual distortion, vertigo, left arm weakness. Resolved on transport to emergency department; CT head shows 9 mm lacunar change; MRI brain negative; CTA head no acute findings, mild left vertebral atherosclerosis -Neurology consulted - symptom of vertigo related to elevated blood pressure. no concern of stroke. -continue antiplatelet patient previously failed statin treatment with rosuvastatin due to myalgia, will re-try statin therapy for continued primary prevention Unstable angina: History of CAD with CABG in 2013, per patient to known 50% blockages in 2013 that were not addressed by CABG or stenting Increasing angina which occurs at rest over previous few months. Increasing shortness of breath with exertion Troponin negative x2 Continue metoprolol succinate 100 mg p.o. patient previously failed statin therapy with rosuvastatin due to myalgia; starting Pravastatin 40mg for prevention of cerebrovascular and cardiovascular events; dose can be titrated up as tolerated by patient Hypertension: Continue losartan 25 mg p.o. every morning Continue beta-sunny as above GERD: Continue Protonix 40 mg p.o Total Time Total Time Spent Total Time Spent (In Minutes): 30 Discharge Plan Discharge Items Patient Disposition: Home - Self-Care Reason For Visit: STROKE LIKE SYMPTOMS, UNSTABLE ANGINA Discharge Diagnosis: Unstable angina Activity: Per Instructions section Non-emergency contact: Primary Care Provider, Clinic Office Manager and [employer] Call non-emergency contact if: your symptoms worsen Follow-up/Referrals: Joby Ingram CRNP [Primary Care Provider] - 04/05/19 8:20 am (Patient and aware of follow-up appointment with Joby Ingram.) Diet: Heart Healthy Addtl Attending Provider Instructions: You were seen and evaluated for concern of stroke-like symptoms, that had resolved prior to your arrival at the hospital. During this admission you had imaging of your head that did not demonstrate any any acute changes to your brain or significant changes to the vessels leading to your brain. For your continued lowering of the risk of strokes and heart attacks, we have started you on a new medication called Pravastatin, to lower your cholesterol that you should continue to take once a day now that you are being discharged; as you have previously not tolerated a different type of this medication, we have started you on an intermediate dose of this that should be increased as you tolerate the medication. remainder of your home medication regimen will continue without change. Pending Studies at Discharge: No Stand-Alone Forms: Medications to Prevent Stroke, [facility], Smoking Cessation Medications and DC Order Prescriptions: New pravastatin 40 mg tablet 40 mg PO DAILY 30 Days Qty: 30 RF: 0 Continued nitroglycerin 0.4 mg tablet, sublingual 0.4 mg SL .COMPLEX Qty: 30 RF: 3 ranolazine 1,000 mg tablet extended release 12 hr 1,000 mg PO BID Qty: 60 RF: 11 aspirin 81 mg Tablet,Delayed Release (Dr/Ec) 81 mg PO HS RF: 0 metoprolol succinate 100 mg tablet extended release 24 hr 100 mg PO QAM RF: 0 clopidogrel 75 mg tablet 75 mg PO QAM RF: 0 pantoprazole 40 mg tablet,delayed release (DR/EC) 40 mg PO QAM RF: 0 losartan 25 mg tablet 25 mg PO QAM RF: 0 ibuprofen 200 mg Tablet 200 mg PO Q6H PRN (Reason: Pain) RF: 0 Discharge Orders: Discharge Order (Routine); Ordered 04/03/19 Ordered By: Arjun Zeng/Other Patient Handouts: Pravastatin tablets Admission Data Admit Date/Time: 04/02/19 21:11 Attending Provider: Louisa Barger Admit Provider: Jelani Velazquez Primary Care Provider: Joby Ingram Other Providers: Francis Saba ; Babar Chávez III ; Tristen Wagner ; Chris Martinez Other Interventions: Discharge Summary Assessment (RN) Last Done: 04/03/19 12:47 DC Date/Time DO NOT enter until pt leaves facility: 04/03/19 13:20 Supervising Physician Co-Signing Physician Notes Resident Physician Supervision Note: I independently interviewed and examined the patient and verified the joy history and physical, reviewed labs and image studies, discussed the case with the resident Dr. Vasquez and agree with the findings and care plan. Resident Activity Tracking Resident Involvement: Resident Care Provided Care Provided: Adult Hospital Medicine
--- NOTE | 2019-04-03 10:41 | Cardiology Consultation ---
Date of Consultation April 03, 2019 Assessment & Plan (1) Dyspnea on exertion: Mr. Smyth is a 68-year-old male with a history of Hypertension, Dyslipidemia, GERD, Pleural Thickening, Black Lung Disease, Cervical Spinal Stenosis, Grade II LV Diastolic Dysfunction, CAD s/p Multiple Intracoronary Stents, and CABG x 2 Vessels (VARGAS to LAD, SVG to LCx 08/16/2012) -- who presented with neurologic symptoms and he also complained of ongoing HUTCHISON and SOB -- which has been present since this winter according to the patient -- but it appears to have been going on for several months now -- as he complained of this in September 2018. He does have an occasional chest pressure with this but not on a consistent basis. It is not like the angina that he's had or described in the past. Patient denies any associated nausea, vomiting, diaphoresis, or weakness. His EKG shows no acute changes and Troponin I was negative x 2. ProBNP is within normal limits. Due to his Dyspnea -- patient underwent a Stress Echocardiogram today (04/03/2019) -- patient exercised for over 7 minutes on a standard Jaun protocol and attained 78% MPHR. Test was ended due to dyspnea. No significant EKG changes. Echocardiogram will be interpreted by physician -- but LV became smaller and hyperdynamic with exercise. Patient's diastolic dysfunction may be contributing to his dyspnea. Consider adding Diltiazem CD 120 mg to slow HR and increase LV diastolic filling time. (2) CAD (coronary artery disease): 1. Continue Metoprolol Succinate ER 100 mg daily. 2. Continue Ranexa 1000 mg b.i.d.. 3. Continue Aspirin 81 mg daily. 4. Continue Plavix 75 mg daily. 5. Continue Cozaar 25 mg daily. 6. Continue Pravachol 40 mg daily if he tolerates. 7. If patient cannot tolerate a statin -- strongly consider Repatha. (3) Grade II diastolic dysfunction: (4) Hypertension: -- As outlined above. (5) Dyslipidemia (high LDL; low HDL): -- As outlined above. Supervising Physician Co-Signing Physician Notes Tristen Wagner MD History of Present Illness Reason for Consultation: -- Decreased exertional tolerance. -- Exertional dyspnea. Requesting Physician: Louisa Barger MD Attending Physician: Tristen Wagner MD History of Present Illness Mr. Smyth is a 68-year-old male with a history of Hypertension, Dyslipidemia, GERD, Pleural Thickening, Black Lung Disease, Cervical Spinal Stenosis, Grade II LV Diastolic Dysfunction, CAD s/p Multiple Intracoronary Stents, and CABG x 2 Vessels (VARGAS to LAD, SVG to LCx 08/16/2012) -- who was admitted to [facility] on 04/02/2019 with visual disturbance, dizziness/vertigo x 1 day. There was concern for possible TIA or CVA -- evaluated by neurology and Dr Chávez does not think that this is the case. CTA of carotids unremarkable. No evidence of stroke on Brain MRI. Patient also complained of ongoing HUTCHISON and SOB that sometimes would happen just walking across the room or bending over to tie his shoes -- which has been present since this winter according to the patient -- but it appears to have been going on for several months now -- as he complained of this in September 2018. He does have an occasional chest pressure with this but not on a consistent basis. It is not like the angina that he's had or described in the past. Patient denies any associated nausea, vomiting, diaphoresis, or weakness. He has been seeing Dr. Rubio in recent months with complaints of increased dyspnea on exertion. He had improvement following the initiation of Ranexa. On a follow-up visit with Dr. Rubio in September 2018 he complained of increasing dyspnea on exertion as well as associated chest tightness. He declined cardiac catheterization and he wanted to maximize his medical management for underlying CAD. Ranolazine dose increased to 1000 mg twice a day. He had resolution of chest tightness but he persisted with complaints of dyspnea on exertion. So far he has negative Troponin I x 2, no changes on his EKG. Chest X-ray shows no acute processes. Stress Echocardiogram is pending. Echocardiogram October 21, 2018 with normal biventricular systolic function, grade 2 LV diastolic dysfunction, normal chamber dimensions, normal LV wall thickness, trace aortic regurgitation, trace to mild mitral regurgitation, trace tricuspid regurgitation. Pulmonary function test December 14, 2018 with normal spirometry. Low normal lung volumes. Decreased diffusing capacity. [facility]. Spirometry reported to be normal. He states he underwent a stress test with monitoring of his oxygenation by arterial blood gas (before and after exercise). He states that he did not have any significant oxygen desaturation. He was told that he did have evidence of black lung disease but he did not qualify for any benefits. He was also told that he had pleural thickening. He was advised to have this followed up by his regular physicians. 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 HISTORICAL BACKGROUND: Patient's cardiac history dates back to 2004 when he was noted to have a high grade OM2 Stenosis s/p Cypher 2.5 x 23 mm Stent. He remained relatively stable with his coronary disease until June 30, 2012. At that point, he was seeing his pain management physician, and he developed sudden onset, severe upper retrosternal chest pressure which radiated to her shoulders and was associated with nausea, diaphoresis, dyspnea, and weakness. He was transported emergently to the ER where he was noted to have marked ST elevations in the inferior leads. He was diagnosed with an inferior ST elevation myocardial infarction secondary to a completely occluded Proximal RCA which was treated using a 4.0 x 15 mm bare metal stent. This was the culprit lesion. He also had a high-grade stenosis of the proximal PDA which was treated using a 2.25 x 12 mm bare metal stent. Otherwise coronary anatomy showed a large-caliber left main coronary artery without significant disease, the mid LAD had a 50% stenosis followed by an 80% stenosis (which remained), and the ostial and proximal segment of the left circumflex had a 50%-70% stenosis. The OM2 was completely occluded at the site of previous stent placement. He did have some collateral flow present from the LAD Diagonal to the OM2 distally. Coronary circulation was right dominant. The only complication may have been embolization of thrombus to the very distal posterior lateral artery. Patient was seen on July 26, 2012 and he was feeling very well overall -- but had residual Coronary Artery Disease involving the Mid LAD and the LCx coronary artery. He was subsequently referred to [facility] for Cardiothoracic Surgery Consultation. Patient subsequently underwent CABG x2 Vessels with VARGAS to LAD, SVG to LCx August 16, 2012. His surgery was complicated by postoperative atrial fibrillation which persisted for a day or 2 after discharge and then resolved completely. Stress Echocardiogram 04/24/2013 performed for complaints of left-sided aching chest pain. He exercised 7 minutes into stage IV to standard Jaun protocol. No chest pain. Maximum heart rate 117 bpm. This was 73% of maximum predicted heart rate. Maximum workload attained was 13 METs. Peak blood pressure 184/90. No ischemic ST segment abnormalities following exercise. Normal Echocardiographic findings after exercise. The test was negative for evidence of exercise-induced myocardial ischemia. Resolution of the chest pain with addition of ranitidine to his medical regimen. Allergies Allergy/AdvReac Type Severity Reaction Status Date / Time rosuvastatin [From Crestor] Allergy Unknown myalgia Verified 04/02/19 17:08 [id number] Reductase Allergy Unknown myalgia Verified 04/02/19 17:08 Inhibitor Home Medications Home Medications Medication Instructions Recorded Confirmed Type ranolazine 1,000 mg 1,000 mg PO BID #60 tab 09/30/18 04/02/19 Rx tablet,extended release,12 hr nitroglycerin 0.4 mg sublingual 0.4 mg SL .COMPLEX #30 tab 03/10/19 04/02/19 Rx tablet aspirin 81 mg PO HS 04/02/19 04/02/19 History clopidogrel 75 mg PO QAM 04/02/19 04/02/19 History ibuprofen 200 mg PO Q6H PRN 04/02/19 04/02/19 History losartan 25 mg PO QAM 04/02/19 04/02/19 History metoprolol succinate 100 mg PO QAM 04/02/19 04/02/19 History pantoprazole 40 mg PO QAM 04/02/19 04/02/19 History pravastatin 40 mg PO DAILY 30 Days #30 tab 04/03/19 Rx Patient History Medical History Acid reflux disease (Chronic) Arthritis (Chronic) Black lung disease Cervical spondylosis (Chronic 06/30/12) Cervical stenosis of spine (Chronic) Surgery [address] on C4-C[address] Rizzo. Coronary atherosclerosis of hughes coronary vessel (Chronic 06/30/12) Dyslipidemia (high LDL; low HDL) (Chronic) Dyspnea on exertion Grade II diastolic dysfunction History of CT (myocardial infarction) 06/30/2012-completely occluded proximal RCA which was treated using a 4.0 x 15 mm bare metal stent, high-grade stenosis of the proximal PDA which was treated using a 2.25 x 12 mm bare metal stent Hypertension (Chronic) Impaired fasting glucose (Chronic) Lumbar canal stenosis (Chronic) Pleural thickening Surgical History H/O cardiac catheterization 2004. At that time he underwent deployment of a Cypher 2.5 x 23 mm stent in the second obtuse marginal artery of the left circumflex coronary artery. S/P CABG x 2 (Chronic) CABG x2 vessels with VARGAS to LAD and a saphenous vein graft to left circumflex on August 16, 2012. 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 other: Multiple toxin and noise exposures Feels Safe at Home: Yes Smoking Status: Never smoker Hx Alcohol Use: Yes Alcohol type: beer Alcohol Intake Frequency: Rarely Alcohol Intake Frequency Comment: One or 2 beers per month Hx Substance Use: No Seatbelt Use: always Physical Exam Physical Exam: GENERAL: Patient in no acute distress. HEENT: Head is atraumatic, normocephalic. EOM's intact. Facies symmetric. No perioral cyanosis. NECK: No JVD. JVP is not elevated. Carotid upstrokes are + 2 bilaterally. No bruits are noted. CHEST/LUNGS: Clear to auscultation throughout all lung collazo. No wheezes, rales, or crackles. CVS: S1 and S2 are regular without murmurs, gallops, or rubs. PMI is nondisplaced. No lifts, heaves, or thrills. No abdominal aortic or renal bruits. ABDOMINAL EXAM: Bowel sounds are present. No masses, organomegaly, or tenderness. EXTREMITIES: No clubbing or cyanosis. No edema. Intact posterior tibial and radial pulses bilaterally. NEUROLOGIC EXAM: Patient is awake, alert, and oriented. Pleasant and cooperative. Answers questions appropriately. Speech is clear. Normal movement in all 4 extremities. Results & Data ([facility]) Vital Signs (Past 12 Hours) Vital Signs Temp Pulse Pulse Resp BP BP Pulse Ox 04/03/19 07:59 67 04/03/19 07:02 36.7 C 83 16 135/78 96 04/03/19 03:01 36.5 C 70 16 126/77 96 04/02/19 23:10 60 04/02/19 22:50 36.5 C 60 18 161/88 H 96 04/02/19 22:35 36.5 C 60 16 161/88 H 96 04/02/19 22:30 63 15 139/72 97 Laboratory Results Laboratory Results - last 24 hr 04/02/19 04/02/19 04/02/19 16:01 16:01 16:01 WBC 7.85 RBC 3.83 L Hgb 12.3 L Hct 35.3 L MCV 92.2 MCH 32.1 MCHC 34.8 RDW Std Deviation 45.0 RDW Coeff of Cecily 13.4 Plt Count 424 H MPV 9.5 Immature Gran % (Auto) 0.9 Neut % (Auto) 70.7 Lymph % (Auto) 18.3 [place] % (Auto) 8.4 Eos % (Auto) 1.3 Baso % (Auto) 0.4 Immature Gran # (Auto) 0.07 H Neut # (Auto) 5.55 Lymph # (Auto) 1.44 [place] # (Auto) 0.66 H Eos # (Auto) 0.10 Baso # (Auto) 0.03 PT 10.2 INR 1.0 APTT 26.8 PTT Ratio 1.0 Sodium 138 Potassium 4.2 Chloride 106 Carbon Dioxide 22 Anion Gap 10.0 BUN 26 H Creatinine 1.32 Est Cr Clr Drug Dosing 47.9 Est GFR ( Amer) 64.7 Est GFR (Non-Af Amer) 55.8 BUN/Creatinine Ratio 20.0 Glucose 147 H Estimat Average Glucose Hemoglobin A1c Calcium 8.7 Phosphorus 3.4 Magnesium 1.8 Total Bilirubin 0.3 AST 14 L ALT 16 Alkaline Phosphatase 93 Troponin I < 0.015 NT-Pro-B Natriuret Pep 375 Total Protein 6.9 Albumin 2.7 L Globulin 4.2 H Albumin/Globulin Ratio 0.6 L Triglycerides Cholesterol LDL Cholesterol, Calc VLDL Cholesterol, Calc HDL Cholesterol Cholesterol/HDL Ratio Lipase 44 L TSH 2.370 Urine Color Urine Appearance Urine pH Ur Specific [place] Urine Protein Urine Glucose (UA) Urine Ketones Urine Blood Urine Nitrite Urine Bilirubin Urine Urobilinogen Ur Leukocyte Esterase 04/02/19 04/03/19 04/03/19 20:00 00:18 08:06 WBC RBC Hgb Hct MCV MCH MCHC RDW Std Deviation RDW Coeff of Cecily Plt Count MPV Immature Gran % (Auto) Neut % (Auto) Lymph % (Auto) [place] % (Auto) Eos % (Auto) Baso % (Auto) Immature Gran # (Auto) Neut # (Auto) Lymph # (Auto) [place] # (Auto) Eos # (Auto) Baso # (Auto) PT INR APTT PTT Ratio Sodium Potassium Chloride Carbon Dioxide Anion Gap BUN Creatinine Est Cr Clr Drug Dosing Est GFR ( Amer) Est GFR (Non-Af Amer) BUN/Creatinine Ratio Glucose Estimat Average Glucose 123 Hemoglobin A1c 5.9 H Calcium Phosphorus Magnesium Total Bilirubin AST ALT Alkaline Phosphatase Troponin I < 0.015 NT-Pro-B Natriuret Pep Total Protein Albumin Globulin Albumin/Globulin Ratio Triglycerides Cholesterol LDL Cholesterol, Calc VLDL Cholesterol, Calc HDL Cholesterol Cholesterol/HDL Ratio Lipase TSH Urine Color Yellow Urine Appearance Clear Urine pH 7.0 Ur Specific [place] > 1.045 H Urine Protein Negative Urine Glucose (UA) Negative Urine Ketones Negative Urine Blood Negative Urine Nitrite Negative Urine Bilirubin Negative Urine Urobilinogen Negative Ur Leukocyte Esterase Negative 04/03/19 04/03/19 04/03/19 08:06 08:06 08:06 WBC 7.77 RBC 4.05 L Hgb 13.3 L Hct 37.0 L MCV 91.4 MCH 32.8 MCHC 35.9 RDW Std Deviation 45.1 RDW Coeff of Cecily 13.5 Plt Count 432 H MPV 9.2 Immature Gran % (Auto) 0.6 Neut % (Auto) 70.1 Lymph % (Auto) 20.7 [place] % (Auto) 6.4 Eos % (Auto) 1.9 Baso % (Auto) 0.3 Immature Gran # (Auto) 0.05 H Neut # (Auto) 5.44 Lymph # (Auto) 1.61 [place] # (Auto) 0.50 Eos # (Auto) 0.15 Baso # (Auto) 0.02 PT INR APTT PTT Ratio Sodium 137 Potassium 4.1 Chloride 107 Carbon Dioxide 23 Anion Gap 7.0 BUN 20 H Creatinine 1.02 Est Cr Clr Drug Dosing 62.0 Est GFR ( Amer) 88.4 Est GFR (Non-Af Amer) 76.2 BUN/Creatinine Ratio 19.3 Glucose 157 H Estimat Average Glucose Hemoglobin A1c Calcium 9.1 Phosphorus Magnesium Total Bilirubin AST ALT Alkaline Phosphatase Troponin I 0.016 NT-Pro-B Natriuret Pep Total Protein Albumin Globulin Albumin/Globulin Ratio Triglycerides 144 Cholesterol 287 H LDL Cholesterol, Calc 206 VLDL Cholesterol, Calc 29 HDL Cholesterol 52 Cholesterol/HDL Ratio 6 Lipase TSH Urine Color Urine Appearance Urine pH Ur Specific [place] Urine Protein Urine Glucose (UA) Urine Ketones Urine Blood Urine Nitrite Urine Bilirubin Urine Urobilinogen Ur Leukocyte Esterase Medications Administered Active Medications Generic Name Dose Route Start Last Admin Trade Name Freq PRN Reason Stop Dose Admin Acetaminophen 650 mg 04/02/19 22:50 04/02/19 23:08 Tylenol PO 05/02/19 22:49 650 mg Q4H PRN Administration Pain or Fever Aspirin 81 mg 04/02/19 22:50 04/02/19 23:19 Ecotrin Ectab PO 05/02/19 22:49 81 mg HS APRIL Administration Clopidogrel Bisulfate 75 mg 04/03/19 09:00 04/03/19 08:13 Plavix PO 05/03/19 08:59 75 mg QAM APRIL Administration Ibuprofen 200 mg 04/02/19 22:50 04/03/19 08:21 Advil PO 05/02/19 22:49 200 mg Q6H PRN Administration Pain Ioversol 116 ml 04/02/19 17:05 04/02/19 17:06 Optiray 320 125ml IV 04/06/19 17:04 116 ml ONCE PRN Administration Interaction Checking Losartan Potassium 25 mg 04/03/19 09:00 04/03/19 08:13 Cozaar PO 05/03/19 08:59 25 mg QAM APRIL Administration Metoprolol Succinate 100 mg 04/03/19 09:00 04/03/19 08:13 Toprol Xl PO 05/03/19 08:59 100 mg QAM APRIL Administration Miscellaneous Information 1 ea 04/02/19 22:50 Pharmacist Discharge Med Rec Consult N/A 05/02/19 22:49 UD PRN Consult Nitroglycerin 0.4 mg 04/02/19 22:50 Nitrostat SL 05/02/19 22:49 UD PRN Chest Pain Pantoprazole Sodium 40 mg 04/03/19 09:00 04/03/19 08:13 Protonix PO 05/03/19 08:59 40 mg QAM APRIL Administration Ranolazine 1,000 mg 04/02/19 22:50 04/03/19 08:13 Ranexa PO 05/02/19 22:49 1,000 mg BID APRIL Administration PG Care Time/CCT Total # of Minutes Spent Total Time Spent with Patient: Total time spent is greater than 50% in coordination of care (as documented) at patient's floor/unit and/or counseling patient: Coding Level of Care Code 39456 Initial Inpt Care Lvl 3 Diagnoses Dyspnea on exertion R06.09 CAD (coronary artery disease) I25.10 Grade II diastolic dysfunction I51.9 Hypertension I10 Dyslipidemia (high LDL; low HDL) E78.5
--- NOTE | 2019-04-03 11:09 | Pharmacy Report ---
Pharmacist Stroke Counseling - Date of Service April 03, 2019 - Scope: Pharmacy has been consulted to provide medication discharge counseling for this patient admitted with transient ischemic attack as per the Pharmacist Discharge Counseling for Stroke Patients Protocol. - Medications on Discharge: Home Medications Medication Instructions Recorded Confirmed aspirin 81 mg PO HS 04/02/19 04/02/19 clopidogrel 75 mg PO QAM 04/02/19 04/02/19 ibuprofen 200 mg PO Q6H PRN 04/02/19 04/02/19 losartan 25 mg PO QAM 04/02/19 04/02/19 metoprolol succinate 100 mg PO QAM 04/02/19 04/02/19 pantoprazole 40 mg PO QAM 04/02/19 04/02/19 New Rx's Medication Instructions Recorded ranolazine 1,000 mg 1,000 mg PO BID #60 tab 09/30/18 tablet,extended release,12 hr nitroglycerin 0.4 mg sublingual 0.4 mg SL .COMPLEX #30 tab 03/10/19 tablet pravastatin 40 mg PO DAILY 30 Days #30 tab 04/03/19 - Action: The above medications, specifically ones for stroke treatment/prophylaxis, have been reviewed in detail with the patient prior to discharge. This includes indication, common adverse reactions, drug interactions, and medication administration. Medication counseling has been employed using the teach-back method to ensure understanding. - Outcome: The patient has demonstrated understanding of the medications. Please note, they are aware that the pharmacist will call them within 72 hours post-discharge to confirm that the appropriate medications are being taken and answer any further medication related questions the patient might have at that time. Contact information Individual to be contacted: self Relationship to patient (if applicable): N/A Phone number: [phone] Best time to call: anytime between [phone] Additional comments: Spoke with patient about aspirin and Plavix - he was able to tell me what these medications do. Denies any side effects; reviewed alarm symptoms. Reviewed pravastatin with patient. He is willing to try it. Instructed patient that this typically does not cause as many side effects. He is taking vitamin D supplementation (vitamin D deficiency thought to be linked to statin myalgia). Thank you for allowing pharmacy to be involved in the care of this patient. Please call [phone] or [phone] with any additional questions
[2019-04-03] MEDS ORDERED: STROKE PATIENT DISCHARGE STA ×2 (11:26→12:44)
--- NOTE | 2019-04-03 14:54 | XCELERA ---
[id number] [id number]
== END 2019-04-03 13:20 | disposition home or self-care (01) ==
LOC: ED 15:45 → INTOOBSV 21:11 → SUATTDRO 21:11 → 2S 21:11